=== PATIENT | male | born 1975 | race African-American/Black ===

== ENCOUNTER 2019-01-02 08:43 | Inpatient (IN) ==
[2019-01-02] MEDS ORDERED: CLINDAMYCIN INJ 900 MG in PREMIX 1 EACH IV STA (09:03)
[2019-01-02] MEDS ORDERED: methylPREDNISolone SOD SUC 125 MG/2 ML VIAL IV STA (09:04)
[2019-01-02 09:14] LABS: Basophils % 0.4 % (0.0-0.8); Eosinophils # 0.2 10*3/uL (0.0-0.87); Eosinophils % 2.1 % (0.00-10.9); Hematocrit 40.9 VOL% (42.0-52.0); Hemoglobin 13.1 GM/DL (14.0-18.0); Immature Granulocytes % 0.3 %; Immature Granulocytes Absolute 0.02 #; Lymphocytes # 1.7 10*3/uL (1.4-4.0); Lymphocytes % 22.1 % (21.2-54.2); Mean Corpuscular Hemoglobin 28 PG (27-34); Mean Corpuscular Volume 87.6 FL (87-102); Mean Platelet Volume 10.4 FL (9.6-12.0); Monocytes # 0.8 10*3/uL (0.11-0.8); Neutrophils % 65.1 % (38.7-73.9); Platelet Count 212 T/CUMM (130-400); Red Blood Count 4.67 MC/CUMM (3.8-5.5); Red Cell Distribution Width 14.3 % (9.3-17.3); White Blood Count 7.7 T/CUMM (4-12)
[2019-01-02 09:32] LABS: Calcium 8.9 MG/DL (8.5-10.1); Osmolality,Calculated 270.8 MOS/KG (273-304); Potassium 3.9 MMOL/L (3.5-5.1)
[2019-01-02] MEDS ORDERED: NICOTINE 21 MG/24 HR PATCH TRANSDERM PRN (11:17)
[2019-01-02] MEDS ORDERED: ONDANSETRON 4 MG/2 ML VIAL IV PRN (11:17)
[2019-01-02] MEDS: ENOXAPARIN 40 MG/0.4 ML SYRINGE SUBCUT SCH (14:40)
[2019-01-02] MEDS: CLINDAMYCIN INJ 600 MG in PREMIX 1 EACH IV SCH (16:45)
[2019-01-02] MEDS: valACYclovir 500 MG TABLET PO SCH (16:45)
[2019-01-03] MEDS: CLINDAMYCIN INJ 600 MG in PREMIX 1 EACH IV SCH ×3 (01:04→17:30)
[2019-01-03 05:40] LABS: Basophils % 0.1 % (0.0-0.8); Eosinophils % 0.3 % (0.00-10.9); Hematocrit 39.2 VOL% (42.0-52.0); Hemoglobin 12.6 GM/DL (14.0-18.0); Immature Granulocytes % 0.3 %; Immature Granulocytes Absolute 0.03 #; Lymphocytes # 2.1 10*3/uL (1.4-4.0); Lymphocytes % 21.5 % (21.2-54.2); Mean Corpuscular HGB Conc 32.1 GM/DL (32-36); Mean Corpuscular Hemoglobin 28 PG (27-34); Mean Corpuscular Volume 87.5 FL (87-102); Mean Platelet Volume 10.2 FL (9.6-12.0); Monocytes % 10.2 % (1.7-12.7); Neutrophils # 6.5 10*3/uL (1.4-7.4); Neutrophils % 67.6 % (38.7-73.9); Platelet Count 235 T/CUMM (130-400); Red Blood Count 4.48 MC/CUMM (3.8-5.5); Red Cell Distribution Width 13.9 % (9.3-17.3); White Blood Count 9.7 T/CUMM (4-12)
[2019-01-03 06:01] LABS: Calcium 9.2 MG/DL (8.5-10.1); Potassium 4.2 MMOL/L (3.5-5.1)
[2019-01-03] MEDS: PANTOPRAZOLE 40 MG TABLET PO SCH (08:52)
[2019-01-03] MEDS: valACYclovir 500 MG TABLET PO SCH (08:52)
[2019-01-03] MEDS: CHLORHEXIDINE 0.12% ORAL RINSE 60 ML BOTTLE SWISH/SPIT SCH ×2 (12:08→23:26)
[2019-01-03] MEDS: ENOXAPARIN 40 MG/0.4 ML SYRINGE SUBCUT SCH (12:08)
[2019-01-04] MEDS: CLINDAMYCIN INJ 600 MG in PREMIX 1 EACH IV SCH ×2 (01:07→08:47)
[2019-01-04 05:41] LABS: Basophils % 0.4 % (0.0-0.8); Eosinophils # 0.1 10*3/uL (0.0-0.87); Eosinophils % 1.4 % (0.00-10.9); Hematocrit 38.8 VOL% (42.0-52.0); Hemoglobin 12.2 GM/DL (14.0-18.0); Immature Granulocytes % 0.3 %; Immature Granulocytes Absolute 0.02 #; Lymphocytes # 3.1 10*3/uL (1.4-4.0); Lymphocytes % 42.5 % (21.2-54.2); Mean Corpuscular HGB Conc 31.4 GM/DL (32-36); Mean Corpuscular Hemoglobin 28 PG (27-34); Mean Corpuscular Volume 87.8 FL (87-102); Mean Platelet Volume 10.6 FL (9.6-12.0); Monocytes # 0.7 10*3/uL (0.11-0.8); Neutrophils # 3.4 10*3/uL (1.4-7.4); Neutrophils % 46.4 % (38.7-73.9); Platelet Count 261 T/CUMM (130-400); Red Blood Count 4.42 MC/CUMM (3.8-5.5); Red Cell Distribution Width 14.2 % (9.3-17.3); White Blood Count 7.2 T/CUMM (4-12)
[2019-01-04 06:06] LABS: Calcium 9.1 MG/DL (8.5-10.1); Osmolality,Calculated 272.7 MOS/KG (273-304); Potassium 4.1 MMOL/L (3.5-5.1)
[2019-01-04 07:30] VITALS: BP 154/94
[2019-01-04] MEDS: valACYclovir 500 MG TABLET PO SCH (08:46)
[2019-01-04] MEDS: PANTOPRAZOLE 40 MG TABLET PO SCH (08:47)
[2019-01-04] MEDS: CHLORHEXIDINE 0.12% ORAL RINSE 60 ML BOTTLE SWISH/SPIT SCH (08:48)
== END 2019-01-04 11:09 | disposition home or self-care (01) | DRG 158 ==
LOC: EDUNIT# → EDBD → N.ED 08:43 → N.EDINP 10:07 → N.2E 15:08
PROVIDERS: ADMIT Internal Medicine; ATTEND Internal Medicine

== ENCOUNTER 2019-05-28 08:19 | Observation (INO) ==
[2019-05-28] MEDS ORDERED: APIXABAN 5 MG TABLET PO STA (09:04)
[2019-05-28 09:35] LABS: Basophils # 0.1 10*3/uL (0.0-0.2); Basophils % 0.3 % (0.0-0.8); Eosinophils # 0.2 10*3/uL (0.0-0.87); Eosinophils % 1.3 % (0.00-10.9); Hematocrit 40.7 VOL% (42.0-52.0); Hemoglobin 12.7 GM/DL (14.0-18.0); Immature Granulocytes % 1.5 %; Immature Granulocytes Absolute 0.21 #; Lymphocytes # 2.7 10*3/uL (1.4-4.0); Lymphocytes % 18.7 % (21.2-54.2); Mean Corpuscular HGB Conc 31.2 GM/DL (32-36); Mean Corpuscular Volume 87.3 FL (87-102); Mean Platelet Volume 10.2 FL (9.6-12.0); Monocytes % 10.2 % (1.7-12.7); Platelet Count 198 T/CUMM (130-400); Red Blood Count 4.66 MC/CUMM (3.8-5.5); Red Cell Distribution Width 15.1 % (9.3-17.3); White Blood Count 14.3 T/CUMM (4-12)
[2019-05-28 09:58] LABS: Albumin 3.5 G/DL (3.4-5.0); Bilirubin,Total 0.4 MG/DL (0.2-1.0); Calcium 9.3 MG/DL (8.5-10.1); Osmolality,Calculated 268.2 MOS/KG (273-304); Total Protein 8.4 G/DL (6.4-8.3)
[2019-05-28] MEDS ORDERED: ZALEPLON 5 MG CAPSULE PO PRN (10:54)
[2019-05-28] MEDS ORDERED: diphenhydrAMINE CAP 25 MG CAPSULE PO PRN (10:54)
[2019-05-28] MEDS ORDERED: NICOTINE 21 MG/24 HR PATCH TRANSDERM PRN (10:54)
[2019-05-28] MEDS ORDERED: guaiFENesin/DM ER 600-30 MG TABLET PO PRN (10:54)
[2019-05-28] MEDS ORDERED: PROMETHAZINE 25 MG TABLET PO PRN (10:54)
[2019-05-28] MEDS ORDERED: ONDANSETRON 4 MG/2 ML VIAL IV PRN (10:54)
[2019-05-28] MEDS ORDERED: ACETAMINOPHEN 325 MG TABLET PO PRN (10:54)
[2019-05-28] MEDS: MORPHINE 4 MG/1 ML VIAL IV PRN (20:26)
[2019-05-28] MEDS: DOCUSATE SODIUM 100 MG CAPSULE PO SCH (20:30)
[2019-05-28] MEDS: APIXABAN 5 MG TABLET PO SCH (20:30)
[2019-05-29] MEDS: MORPHINE 4 MG/1 ML VIAL IV PRN ×2 (04:40→08:44)
[2019-05-29 05:01] LABS: Basophils % 0.4 % (0.0-0.8); Eosinophils # 0.2 10*3/uL (0.0-0.87); Eosinophils % 1.9 % (0.00-10.9); Hematocrit 36.8 VOL% (42.0-52.0); Hemoglobin 11.5 GM/DL (14.0-18.0); Immature Granulocytes % 1.1 %; Immature Granulocytes Absolute 0.12 #; Lymphocytes # 2.6 10*3/uL (1.4-4.0); Lymphocytes % 23.7 % (21.2-54.2); Mean Corpuscular HGB Conc 31.3 GM/DL (32-36); Mean Platelet Volume 10.3 FL (9.6-12.0); Monocytes % 11.7 % (1.7-12.7); Neutrophils % 61.2 % (38.7-73.9); Platelet Count 177 T/CUMM (130-400); Red Blood Count 4.28 MC/CUMM (3.8-5.5); Red Cell Distribution Width 14.7 % (9.3-17.3); White Blood Count 11.1 T/CUMM (4-12)
[2019-05-29 05:42] LABS: Bilirubin,Total 1.3 MG/DL (0.2-1.0); Osmolality,Calculated 269.1 MOS/KG (273-304); Risk Ratio 2.52; Total Protein 7.4 G/DL (6.4-8.3); VLDL CHOLESTEROL 11.2 MG/DL
[2019-05-29] MEDS: DOCUSATE SODIUM 100 MG CAPSULE PO SCH (08:44)
[2019-05-29] MEDS: APIXABAN 5 MG TABLET PO SCH (08:44)
[2019-05-29] MEDS ORDERED: predniSONE 20 MG TABLET PO SCH (09:00)
[2019-05-29] MEDS ORDERED: PANTOPRAZOLE 40 MG TABLET PO SCH (09:00)
[2019-05-29 11:20] VITALS: BP 129/75
[2019-05-29] MEDS ORDERED: metFORMIN 500 MG TABLET PO SCH (17:00)
== END 2019-05-29 13:35 | disposition home or self-care (01) ==
LOC: N.ED 08:19 → N.EDINP 08:19 → N.2E 11:55
PROVIDERS: ADMIT Internal Medicine; ATTEND Internal Medicine

== ENCOUNTER 2022-12-29 09:59 | Observation (INO) ==
[2022-12-29 10:36] LABS: Basophils % 0.3 % (0.0-0.8); Eosinophils # 0.1 10*3/uL (0.0-0.87); Eosinophils % 1.5 % (0.00-10.9); Hematocrit 44.1 VOL% (42.0-52.0); Hemoglobin 14.1 GM/DL (14.0-18.0); Immature Granulocytes % 0.1 %; Immature Granulocytes Absolute 0.01 #; Lymphocytes # 2.7 10*3/uL (1.4-4.0); Lymphocytes % 38.8 % (21.2-54.2); Mean Platelet Volume 10.9 FL (9.6-12.0); Monocytes # 0.7 10*3/uL (0.11-0.8); Monocytes % 9.7 % (1.7-12.7); Neutrophils % 49.6 % (38.7-73.9); Platelet Count 204 T/CUMM (130-400); Red Blood Count 5.01 MC/CUMM (3.8-5.5); Red Cell Distribution Width 14.2 % (9.3-17.3); White Blood Count 6.88 T/CUMM (4-12)
[2022-12-29 10:49] LABS: Albumin 3.7 G/DL (3.4-5.0); Bilirubin,Total 0.4 MG/DL (0.20-1.00); Calcium 9.8 MG/DL (8.5-10.1); Osmolality,Calculated 276.5 MOS/KG (273-304); Potassium 3.9 MMOL/L (3.5-5.1); Total Protein 7.6 G/DL (6.4-8.2)
[2022-12-29 12:06] LABS: Platelet Estimate Normal
[2022-12-29] MEDS: ASPIRIN EC 81 MG TABLET PO SCH (12:55)
[2022-12-29] MEDS: ENOXAPARIN 80 MG/0.8 ML SYRINGE SUBCUT SCH (12:58)
[2022-12-29] MEDS: SODIUM CHLORIDE 0.9% 1,000 ML IV SCH (17:48)
[2022-12-29 18:36] LABS: Bilirubin,Urine Negative (Negative); Blood, Urine Trace mg/dL (Negative); Glucose,Urine (UA) Negative (Negative); Ketones,Urine Negative (Negative); Nitrite,Urine Negative (Negative); Protein,Urine Negative (Negative); Urine Appearance Clear (Clear); Urine Color Yellow (Yellow); Urine Urobilinogen 0.2 eU/dL (<2.0)
[2022-12-29 18:41] LABS: Mucus,Urine Occasional /LPF (Occasional); RBC,Urine 2 /HPF (0-4); Squamous Epithelial Cell,Urine Occasional /HPF (0-10)
[2022-12-29] MEDS ORDERED: ACETAMINOPHEN 325 MG TABLET PO PRN (18:55)
[2022-12-29] MEDS ORDERED: CYCLOBENZAPRINE 10 MG TABLET PO PRN (19:16)
[2022-12-29 20:36] LABS: Barbiturates Screen,Urine Negative (Negative); Benzodiazepines Screen,Urine Negative (Negative); Cannabinoid Screen,Urine Negative (Negative); Opiate Screen,Urine Negative (Negative); Phencyclidine Screen,Urine Negative (Negative)
[2022-12-29] MEDS ORDERED: CYCLOBENZAPRINE 10 MG TABLET PO SCH (21:00)
[2022-12-29] MEDS ORDERED: ATORVASTATIN 80 MG TABLET PO SCH (21:00)
[2022-12-29] MEDS: PANTOPRAZOLE 40 MG VIAL IV SCH (22:01)
[2022-12-29] MEDS: METOPROLOL TARTRATE 25 MG TABLET PO SCH (22:32)
[2022-12-30 05:12] LABS: Basophils % 0.3 % (0.0-0.8); Eosinophils # 0.2 10*3/uL (0.0-0.87); Eosinophils % 2.4 % (0.00-10.9); Hematocrit 43.3 VOL% (42.0-52.0); Hemoglobin 13.7 GM/DL (14.0-18.0); Immature Granulocytes % 0.3 %; Immature Granulocytes Absolute 0.02 #; Lymphocytes # 2.6 10*3/uL (1.4-4.0); Lymphocytes % 42.3 % (21.2-54.2); Mean Corpuscular HGB Conc 31.6 GM/DL (32-36); Mean Corpuscular Volume 89.6 FL (87-102); Mean Platelet Volume 11.5 FL (9.6-12.0); Monocytes # 0.6 10*3/uL (0.11-0.8); Monocytes % 10.3 % (1.7-12.7); Neutrophils % 44.4 % (38.7-73.9); Platelet Count 141 T/CUMM (130-400); Red Blood Count 4.83 MC/CUMM (3.8-5.5); Red Cell Distribution Width 14.3 % (9.3-17.3); White Blood Count 6.19 T/CUMM (4-12)
[2022-12-30 05:48] LABS: Calcium 9.2 MG/DL (8.5-10.1); Osmolality,Calculated 282.3 MOS/KG (273-304); Potassium 5.4 MMOL/L (3.5-5.1); Risk Ratio 3.57; Thyroid Stimulating Hormone 1.21 uIU/ml (0.358-3.74); VLDL Cholesterol 9.4 MG/DL
[2022-12-30 05:49] LABS: Eosinophils 1 % (0-10); Hypochromia Slight; Lymphocytes 46 % (20-55); Microcytosis Slight; Total Cells Counted 100
[2022-12-30 05:50] LABS: Target Cells Slight
[2022-12-30] MEDS ORDERED: SODIUM ZIRCONIUM CYCLOSILICATE 10 GM PACK PO ONE (09:00)
[2022-12-30] MEDS: SODIUM CHLORIDE 0.9% 1,000 ML IV SCH (09:01)
[2022-12-30] MEDS: PANTOPRAZOLE 40 MG VIAL IV SCH (09:01)
[2022-12-30] MEDS: METOPROLOL TARTRATE 25 MG TABLET PO SCH (09:01)
[2022-12-30] MEDS: ASPIRIN EC 81 MG TABLET PO SCH (09:01)
[2022-12-30] MEDS: ENOXAPARIN 80 MG/0.8 ML SYRINGE SUBCUT SCH ×2 (11:57)
[2022-12-30 12:15] LABS: Calcium 8.4 MG/DL (8.5-10.1); Osmolality,Calculated 278.4 MOS/KG (273-304); Potassium 4.1 MMOL/L (3.5-5.1)
[2022-12-30 13:31] VITALS: BP 136/87
== END 2022-12-30 14:00 | disposition home or self-care (01) ==
LOC: N.TELEN 09:59 → N.ED 09:59 → N.TELEN 13:10
PROVIDERS: ADMIT Internal Medicine; ATTEND Internal Medicine